=== PATIENT | male | born 1995 | race Caucasian/White ===

== ENCOUNTER → 2017-07-30 | Outpatient (CLI) | payer BC | LOC: COL.RAD 12:20 | DX: S02.19XA Other fracture of base of skull, initial encounter for closed fracture (principal); R04.0 Epistaxis ==

== ENCOUNTER → 2017-07-30 | Outpatient (CLI) | payer BC | LOC: COL.RAD 13:22 | DX: S02.19XA Other fracture of base of skull, initial encounter for closed fracture (principal) ==